=== PATIENT | male | born 1995 | race Native Hawaiian/Other Pacific Islander ===

== ENCOUNTER 2022-05-21 10:46 | Outpatient (CLI) | payer OTHER | END 2022-05-21 19:11 | disposition home or self-care (01) | LOC: RAD 10:46 | PROVIDERS: ATTEND Internal Medicine | DX: M25.562 Pain in left knee (principal); M25.572 Pain in left ankle and joints of left foot; M79.672 Pain in left foot ==

== ENCOUNTER 2022-11-15 12:15 | Outpatient (CLI) | payer BC | END 2022-11-15 20:48 | disposition home or self-care (01) | LOC: RAD 12:15 | PROVIDERS: ATTEND Nurse Practitioner Family | DX: M54.89 Other dorsalgia (principal); W19.XXXA Unspecified fall, initial encounter ==